=== PATIENT | male | born 1965 | race Caucasian/White ===

== ENCOUNTER 2025-04-25 12:05 | Emergency (ER) | payer BC, MEDICAID ==
[~2025-04-25] VITALS: Ht 152.4 cm; Wt 90.7 kg
[2025-04-25 12:18] VITALS: BP 156/93
[2025-04-25] MEDS: IV NORMAL SALINE 1000 ML BAG IV ONE (12:47)
[2025-04-25 12:48] LABS: PLATELET COUNT (AUTO) 337 K/uL (152-348); RED BLOOD CELL COUNT(AUTO) 3.82 MIL/uL (4.06-5.63); RED CELL DISTRIBUTION WIDTH 17.2 % (12.1-16.2); WHITE BLOOD COUNT (AUTO) 9.5 K/uL (3.6-10.2)
[2025-04-25 12:57] LABS: CREATININE 1.0 mg/dL (0.6-1.3); SODIUM SERUM 136.0 mmol/L (136-145); UREA NITROGEN, BLOOD 19.0 mg/dL (7-18)
[2025-04-25 13:03] LABS: ASPARTATE AMINOTRANSFERASE 18.0 U/L (15-37); TOTAL PROTEIN, SERUM 7.6 g/dL (6.4-8.2)
[2025-04-25] MEDS ORDERED: SULFAMETH/TRIMETH 800/160 MG TABLET ONE (13:58)
[2025-04-25] MEDS: SULFAMETH/TRIMETH 800/160 MG TABLET PO ONE (13:58)
[2025-04-25] MEDS ORDERED: SULF1TAB48 PO (13:58)
[2025-04-25 14:04] VITALS: BP 147/89; O2SAT 96
== END 2025-04-25 14:05 | disposition home or self-care (01) ==
LOC: ER 12:25
DX: R22.41 Localized swelling, mass and lump, right lower limb (principal); I82.401 Acute embolism and thrombosis of unspecified deep veins of right lower extremity; F32.A Depression, unspecified; F17.200 Nicotine dependence, unspecified, uncomplicated; R00.2 Palpitations
CPT/HCPCS: 99284; 96360; 93971; 80076; 80048; 85025; 84145; 87040; 36415; 93005 ×2; 83605; J7040; A4606; A4663